=== PATIENT | male | born 1960 | race Caucasian/White ===

== ENCOUNTER 2018-08-31 20:45 | Emergency (ER) | payer OTHER ==
[~2018-08-31] VITALS: Ht 167.6 cm; Wt 86.2 kg
[2018-08-31 21:23] LABS: HEMATOCRIT 40.8 % (42.0-52.0); HEMOGLOBIN 13.8 gm/dL (14.0-18.0); MCH 31.7 pg (26.0-34.0); MCHC 33.9 g/dL (28.0-37.0); MCV 93.4 fL (80.0-100.0); RBC 4.36 mil/uL (4.50-6.00); RDW 13.7 % (10.5-14.5); WBC 9.3 thou/uL (4.0-11.0)
[2018-08-31 21:28] LABS: APTT 28.4 Seconds (24.5-32.8); INR 1.1; PROTIME 11.9 Seconds (9.3-11.4)
[2018-08-31 21:38] LABS: CALCIUM 8.8 mg/dL (8.5-10.1); CREATININE 0.9 mg/dL (0.7-1.3); POTASSIUM 4.5 mmol/L (3.5-5.1)
[2018-08-31 21:44] LABS: ALBUMIN 2.6 g/dL (3.4-5.0); TOTAL BILIRUBIN 0.4 mg/dL (<0.1-1.0); TOTAL PROTEIN 6.9 g/dL (6.4-8.2)
[2018-08-31 22:38] VITALS: BP 138/63
== END 2018-08-31 22:39 | disposition home or self-care (01) ==
LOC: ER 20:45
PROVIDERS: Emergency Medicine
DX: M25.512 Pain in left shoulder (principal); I10 Essential (primary) hypertension; Z88.0 Allergy status to penicillin; Z88.5 Allergy status to narcotic agent; W18.39XA Other fall on same level, initial encounter; Y93.89 Activity, other specified; Y92.89 Other specified places as the place of occurrence of the external cause; Y99.8 Other external cause status

== ENCOUNTER 2018-09-04 11:12 | Emergency (ER) | payer OTHER ==
[~2018-09-04] VITALS: Ht 165.1 cm; Wt 68.0 kg
[2018-09-04] MEDS ORDERED: LIPITOR80 MG PO (13:03)
[2018-09-04] MEDS ORDERED: AMLODIPINE BESY10 MG PO (13:04)
[2018-09-04] MEDS ORDERED: LISINOPRIL30 MG PO (13:04)
[2018-09-04] MEDS ORDERED: ARICEPT10 MG PO (13:04)
[2018-09-04] MEDS ORDERED: METOPROLOL SUCC50 MG PO (13:05)
[2018-09-04] MEDS ORDERED: HUMALOG KW100 UNIT/1 SUBQ (13:06)
[2018-09-04] MEDS ORDERED: REMERON 30 MG T30 M1 PO (13:07)
[2018-09-04] MEDS ORDERED: IRON325 PO (13:08)
[2018-09-04] MEDS ORDERED: VITAMIN B-1100 M1 PO (13:09)
[2018-09-04] MEDS ORDERED: DEPAKOTE ER500 MG PO (13:09)
[2018-09-04] MEDS ORDERED: SEROQUEL 50 MG50 MG PO (13:10)
[2018-09-04] MEDS ORDERED: QUETIAPINE FUM100 MG PO (13:10)
[2018-09-04] MEDS ORDERED: LANTUS100 UNIT/M SUBQ (13:11)
[2018-09-04 15:12] VITALS: BP 125/70
== END 2018-09-04 15:15 ==
LOC: ER 11:12
DX: R51 Headache (principal); I10 Essential (primary) hypertension; E11.9 Type 2 diabetes mellitus without complications; F10.97 Alcohol use, unspecified with alcohol-induced persisting dementia; F32.9 Major depressive disorder, single episode, unspecified; I48.91 Unspecified atrial fibrillation; E78.5 Hyperlipidemia, unspecified; Z88.0 Allergy status to penicillin; Z88.5 Allergy status to narcotic agent; W18.39XA Other fall on same level, initial encounter; Y93.89 Activity, other specified; Y92.89 Other specified places as the place of occurrence of the external cause; Y99.8 Other external cause status

== ENCOUNTER 2018-09-28 15:49 | Emergency (ER) | payer OTHER ==
[~2018-09-28] VITALS: Ht 175.3 cm; Wt 72.6 kg
[~2018-09-28 15:49] MED LIST: AMLODIPINE BESY10 MG PO; ARICEPT10 MG PO; DEPAKOTE ER500 MG PO; HUMALOG KW100 UNIT/1 SUBQ; IRON325 PO; LANTUS100 UNIT/M SUBQ; LIPITOR80 MG PO; LISINOPRIL30 MG PO; METOPROLOL SUCC50 MG PO; QUETIAPINE FUM100 MG PO; REMERON 30 MG T30 M1 PO; SEROQUEL 50 MG50 MG PO; VITAMIN B-1100 M1 PO
[2018-09-28] MEDS ORDERED: KEPPRA750 MG PO (15:59)
[2018-09-28] MEDS ORDERED: ARICEPT 5 MG TAB5 MG PO (16:00)
[2018-09-28 16:42] LABS: ABSOLUTE NEUTROPHILS 4.4 thou/uL (1.4-8.2); BASOPHILS 1.2 % (0.0-2.0); EOSINOPHILS 6.1 % (0.0-3.0); HEMATOCRIT 40.2 % (42.0-52.0); HEMOGLOBIN 13.9 gm/dL (14.0-18.0); LYMPHOCYTES 30.1 % (24.0-44.0); MCH 32.2 pg (26.0-34.0); MCHC 34.6 g/dL (28.0-37.0); MCV 93.1 fL (80.0-100.0); MONOCYTES 6.8 % (1.0-8.0); PLATELET COUNT 138 thou/uL (150-400); POLYS 55.8 % (36.0-66.0); RBC 4.32 mil/uL (4.50-6.00); WBC 7.8 thou/uL (4.0-11.0)
[2018-09-28 16:50] LABS: URINE BILIRUBIN NEGATIVE (Negative); URINE BLOOD NEGATIVE (Negative); URINE CLARITY CLEAR; URINE COLOR YELLOW; URINE GLUCOSE-RANDOM* 2+ (Negative); URINE KETONES NEGATIVE (Negative); URINE LEUKOCYTES-REFLEX NEGATIVE (Negative); URINE NITRITE-REFLEX NEGATIVE (Negative); URINE PROTEIN (DIPSTICK) NEGATIVE (Negative); URINE SPECIFIC GRAVITY 1.015 (1.005-1.035); URINE UROBILINOGEN 0.2 E.U./dl (0.2-1.0)
[2018-09-28 16:51] LABS: POTASSIUM 3.7 mmol/L (3.5-5.1)
[2018-09-28 16:58] LABS: AMP/METHAMP Negative (Negative); BARBITURATES Negative (Negative); BENZODIAZEPINES Negative (Negative); COCAINE Negative (Negative); METHADONE Negative (Negative); OPIATES Negative (Negative); PCP Negative (Negative)
[2018-09-28] MEDS ORDERED: DEPAKOTE ER250 MG PO (19:43)
[2018-09-28] MEDS ORDERED: SEROQUEL 50 MG50 MG PO (19:43)
[2018-09-28 23:44] VITALS: BP 124/97
--- NOTE | 2018-09-30 19:29 | HC ---
[facility] [address] [place] [address] CONSULTATION Name: KODAK SKY Room #: DEP [facility]#: [id number] Admission: 09/28/18 ������������������ Attend Phys: Discharge: 09/28/18 ������������������ Date of : 58 Report #: [id number] THIS REPORT FOR: //name// CC: Paula Baltazar DATE OF SERVICE: 09/28/2018 PRIMARY ATTENDING PHYSICIAN: Dr. García and Dr. Kendall Espinoza. FIRESTOPPER INSTALLER: Trent Eldridge D.O. REASON FOR CONSULTATION: Sent from the [facility] due to exit-seeking behaviors, senile dementia. HISTORY OF PRESENT ILLNESS: This is a 58-year-old male who resides at the [facility]. Apparently, the patient had been a bit agitated over the last 1 or 2 weeks. He has made several efforts at leaving the facility, found in the parking lot tonight. The patient has a history of dementia, also according to me, a history of alcoholism. He states his age is 64; however, listed in the records is 58. He denies thoughts of harming himself or others physically. REVIEW OF SYSTEMS: A comprehensive review of systems was not possible due to his dementia, but he denied fevers, chills, chest pain or shortness of air. He was brought in by the case [facility]. PAST MEDICAL HISTORY: Includes hypertension, alcohol-induced dementia, diabetes mellitus type 2, depression, anemia, also TIA, history of stroke, AFib, psychiatric history of mood disorder, dementia, alcohol and vascular type. MEDICATIONS: His medications at the nursing facility: Atorvastatin 80 mg p.o. daily, medicine 30 mg p.o. daily, amlodipine besylate 10 mg p.o. daily, metoprolol succinate 50 mg p.o. daily, insulin lispro 3 units subq a.c., mirtazapine 30 mg p.o. at bedtime, donepezil 10 mg p.o. b.i.d., ferrous sulfate 325 mg p.o. b.i.d., thiamine 100 mg p.o. daily, Depakote ER 500 mg p.o. b.i.d., Seroquel fumarate 250 mg p.o. at bedtime, insulin glargine 50 units subcutaneous at bedtime and Keppra 750 mg p.o. b.i.d. ALLERGIES: CODEINE AND PENICILLINS. SOCIAL HISTORY: Alcohol, significant past use, cannot quantify at this point. Also, I suspect, he has been a smoker. VITAL SIGNS: In the ER, BP 152/77, pulse ox 96%, pulse 72 and respirations 15. [address] [address] CONSULTATION Name: KODAK SKY Room #: DEP [facility]#: [id number] Admission: 09/28/18 ������������������ Attend Phys: Discharge: 09/28/18 ������������������ Date of : 58 Report #: [id number] Physical exam performed by the ER physician was grossly normal. LABORATORY DATA: Laboratories in the Emergency Room, sodium 141, potassium 3.7, chloride 103, bicarbonate 29, BUN 20, creatinine 1.0, estimated GFR 76, glucose 250 and calcium 9. On the CBC, H and H 13.9 and 40.2, white count 7.8 and platelets 138,000. UDS was negative. Urine was negative, with the exception of 2+ glucose. NEUROLOGICAL EXAMINATION: The patient had abnormally positive bilateral palmomental reflex. He did not have cogwheeling in his bilateral biceps tendon or wrist. He was able to track my finger with his eyes. His tongue was moist and midline. MENTAL STATUS EXAMINATION: This is a well-developed, disheveled male, appearing younger than stated age, in a red [employer] [facility] outfit. Attention limited. Concentration limited. Speech normal rate. Thought process linear and goal directed. Thought content focused on trying something new, unable to say specifically where. He is able to tell me he has a gentleman who is his DPOA, but admits he had destination, I believe, taking behavior. Memory known to be impaired. Denied SI or HI. Denied hopelessness or helplessness. Denied homicidal intent or plan. Insight limited. Judgment limited. Fund of knowledge below average. FORMULATION: This is a 58-year-old male with history of multifactorial major neurocognitive disorder, sent to the Emergency Room for general medical evaluation and then I was asked by Dr. Espinoza to provide some mutual aid and adjust his medication regimen. PLAN: At this time, I would go ahead and increase his Seroquel conservatively, 250 mg at 09:00 and 150 mg at 14:00 and continue with 250 mg at 2100. Regarding the patient's Depakote, he is currently on Depakote ER 500 mg p.o. b.i.d. I think the reasonable increase would be to 750 mg p.o. b.i.d. Also given a disinhibition, I would recommend discontinuing the mirtazapine at this time, as the risks outweigh the benefits given his leave-taking behavior and difficulty in management. Continue the Aricept at this time; however, his SLUMS or MoCA should be reassessed and if he is scoring less than 10, I do not think there would be material benefit, especially since it is documented in the chart that this is a non-Alzheimer dementia. RECOMMENDATIONS: We discussed with Dr. Espinoza, his DPOA, who was not available to chat with. There was a screener here from [facility]. I discussed these recommendations with also Dr. Thorne, covering for Dr. Armijo, who was briefed on the phone about this case. [address] [place] [address] CONSULTATION Name: ASYAKODAK Room #: DEP [facility]#: [id number] Admission: 09/28/18 ������������������ Attend Phys: Discharge: 09/28/18 ������������������ Date of : 58 Report #: [id number] Time spent on interview and review of records and also further efforts with consultation care was at least 30 minutes. ��������������������������������������������� <ELECTRONICALLY SIGNED> ���������������������������������������� By: Trent Eldridge DO ��������������������������������������������� 09/30/18 1929 22 1245 Trent Eldridge DO /nt
== END 2018-09-28 23:45 ==
LOC: ER 15:49
PROVIDERS: Emergency Medicine
DX: F01.51 Vascular dementia, unspecified severity, with behavioral disturbance (principal); F91.1 Conduct disorder, childhood-onset type; I10 Essential (primary) hypertension; E11.9 Type 2 diabetes mellitus without complications; F32.9 Major depressive disorder, single episode, unspecified; I48.91 Unspecified atrial fibrillation; E78.5 Hyperlipidemia, unspecified; F39 Unspecified mood [affective] disorder; Z86.73 Personal history of transient ischemic attack (TIA), and cerebral infarction without residual deficits; Z79.4 Long term (current) use of insulin; Z79.899 Other long term (current) drug therapy; Z88.0 Allergy status to penicillin; Z88.5 Allergy status to narcotic agent